=== PATIENT | female | born 1990 | race Caucasian/White ===

== ENCOUNTER 2022-09-20 07:43 | Inpatient (IN) ==
[2022-09-20] MEDS ORDERED: LIDOCAINE 1% LOCAL 20 ML VIAL INFIL PRN (08:20)
[2022-09-20] MEDS ORDERED: OXYTOCIN 30 UNITS/500 ML BAG IV PRN (08:20)
[2022-09-20] MEDS ORDERED: LACTATED RINGER'S 1,000 ML IV PRN (08:20)
--- NOTE | 2022-09-20 08:36 | History & Physical Report ---
Date of Service September 20, 2022 Assessment & Plan (1) Breech presentation: (2) Large for gestational age fetus: (3) Polyhydramnios affecting : Plan PLan attempt at ECV. Risks discussed including failure, pain, rom, abruption, heart rate changes that would necessitate . ON my ultrasound, there does not appear to be a nuchal cord and plenty of fluid. Also discussed risks of --anesthesia, bleeding, transfusion, infection, poor wound healing, damage to surrounding structures with need for further surgery, blood clot leg/lungs, heart attack , stroke, , injury to the baby. Discussed could go with c/s first, but really would like to attempt ecv. Patient also understands that this baby appears lga. We may be successful and still need a c/s because baby does not fit through the pelvis . Fetus category one. Admission and Anticipated Discharge Date Admission Date: September 20, 2022 History of Present Illness Chief Complaint: poly, breech Primary Care Provider: Cherelle Farias MD Patient s a [id number] with iup at 39 0/7 weeks . Patient presents to labor and delivery for probable version. Patient was scheduled for induction for me today for poly. She presented to the office yesterday and had rnst, ultrasound with dvp 11 and now breech presentation. Long discussion about options--attempt version, primary c/s. Patient would like to attempt version. Notes good fm. no lof/vb. rare contraction and Delivery Plans LGA--plan 39wk induction 36 week us AC>98%, efw 97% Obesity (BMI between 35-39 @ beginning of ) *Growth US @ 32 wks *Weekly NSTs @ 36wks Hx HSV - Valtrex at 36 week has had covid vaccine--no booster Polyhydramnios *Weekly NSTs @ Dx *Weekly AFIs @ Dx *If pocket >16 refer to M *Deliver between [id number] - IOL 09/20/22 flu vaccine at work got covid booster 07/06/22 OB Labs: Blood Type O Positive 02/19/22 Antibody Screen NEGATIVE 02/19/22 Hemoglobin 12.0 g/dl (12.0-16.0) 07/05/22 Hematocrit 34.7 % (34.1-44.9) 07/05/22 Mean Corpuscular Volume 86.8 fL (80-100) 02/19/22 Platelet Count 378 K/uL (130-400) 02/19/22 Rubella IgG Antibody Immune (Immune) 02/19/22 Rapid Plasma Reagin Nonreactive (Nonreactive) 02/19/22 Hepatitis B Surface Antigen. NON-REACTIVE (NON-REACTIVE) 02/19/22 Hepatitis C Antibody Neg (Neg) 10/28/19 Hepatitis C Antibody (EIA) NON-REACTIVE (NON-REACTIVE) 02/19/22 HIV (1&2) Ag and Ab Confirmation NON-REACTIVE (NON-REACTIVE) 02/19/22 Glucose 1 Hour 50 gm Load 113 mg/dl (70-130) 07/05/22 Maternal Serum Alpha Fetoprotein 36.3 ng/mL 04/25/22 OB Optional Labs: Chlamydia trachomatis RNA NOT DETECTED (NOT DETECTED) 02/19/22 Neisseria gonorrhoeae RNA NOT DETECTED (NOT DETECTED) 02/19/22 Alpha Fetoprotein Triple Screen SEE NOTE 04/25/22 Labs Reviewed: Hep C - nonreactive Hep B - nonreactive HIV - nonreactive Declines cf/sma--mln low risk panorama neg afp gbs neg Allergies Allergy/AdvReac Type Severity Reaction Status Date / Time No Known Allergies Allergy Verified 09/19/22 09:01 Home Medications Medication Instructions Recorded Confirmed Type sertraline 100 mg tablet 100 mg PO DAILY 03/27/21 09/19/22 History prenat.vits,matthias,iaq-fovp-xsgth 1 tab PO DAILY 02/05/22 09/19/22 History valacyclovir 500 mg tablet 500 mg PO BID #60 tabs 08/21/22 09/19/22 Rx (Valtrex) Patient History Medical History HSV-1 (herpes simplex virus 1) infection No chronic diseases present No pertinent past medical history Surgical History S/P wisdom tooth extraction Family History Father Hypertension Mother Anxiety Denies family history of Ovarian cancer Breast cancer Colorectal cancer Social History Smoking Status: Never smoker Hx Alcohol Use: No Hx Substance Use: No Preferred Language: German Communication Ability: Effective 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 Operator Required: No marital status: marital status details: Terrance Wang (31) [phone] Current Living Situation: Spouse Current Living Situation Comment: lives with spouse, cat-spoouse changing litter current occupational status: employed current occupation: [employer] Other Information That Helps Us Care for You: No Feels Safe at Home: Yes Safety Concerns: Feels Safe At This Time OB History g1--present [employer]OP[employer] INTERN History noncontributory Physical Exam Constitutional: WD/WN, vitals as above Gastrointestinal (Abdomen): soft, gravid, nt US--poly, breech with legs crossed at cervix Psychiatric: A+Ox3, euthymic affect Genitourinary: EFM--140s with mod variability, accels to 160s, no decels toco--tayo Results & Data ([facility]) Vital Signs (Past 12 Hours) Vital Signs Temp Pulse Resp BP 09/20/22 08:22 101 H 133/90 09/20/22 07:55 37.0 C 18 Coding Level of Care Code None Diagnoses Breech presentation O32.1XX0 Large for gestational age fetus Polyhydramnios affecting O40.9XX0
[2022-09-20 08:57] LABS: Hematocrit (blood only) 34.6 % (34.1-44.9); Mean Corpuscular Hemoglobin 30.6 pg (25.0-34.0); Mean Corpuscular Hgb Conc 34.7 g/dL (32.0-36.0); Mean Corpuscular Volume 88.3 fL (80.0-100.0); Mean Platelet Volume 10.2 fL (9.4-12.3); Platelet Count 258 K/uL (130-400); RDW Coefficient of Variation 12.6 % (11.5-14.5); Red Blood Count 3.92 M/uL (3.93-5.22); White Blood Count 8.06 K/ul (4.8-10.8)
[2022-09-20] MEDS ORDERED: MINERAL OIL 30 ML UDC ONE (09:19)
--- NOTE | 2022-09-20 09:45 | Labor Progress Brief Note ---
Date of Service September 20, 2022 Subjective comfortable after attempt at version Assessment & Plan (1) Breech presentation: (2) Failed external cephalic version: Plan Will plan to proceed with primary c/s. Unfortunately the patient ate a granola bar this am. Anesthesia feels most comfortable waiting til 1pm to do procedure. No urgency so ok with this unless situation changes. fht category one. Admission and Anticipated Discharge Date Admission Date: September 20, 2022 Physical Exam Physical Exam: Patient was placed in the supine position , arms over head. Head in the ruq, complete breech. Attempt made to turn baby x 3 with backward roll. No movement of the baby . FHR remained reassuring throughout. fht--140s with mod variability, accels to 170s, no decels noted toco--tayo Results & Data ([facility]) Vital Signs (Past 12 Hours) Vital Signs Temp Pulse Resp BP Pulse Ox 09/20/22 09:37 90 96 09/20/22 09:32 104 H 98 09/20/22 09:27 86 98 09/20/22 09:22 99 H 97 09/20/22 08:50 137 H 82 L 09/20/22 08:22 101 H 133/90 09/20/22 07:55 37.0 C 18 Coding Level of Care Code None Diagnoses Breech presentation O32.1XX0 Failed external cephalic version O32.9XX0
--- NOTE | 2022-09-20 12:07 | Anesthesiology Consultation ---
Date of Service September 20, 2022 Assessment & Plan (1) Encounter for pre-operative examination: Chart Review Chart Review: Acceptable Risk for Surgery and Patient NOT seen in Pre Admission Testing Consults Requested none History Height/Weight Height: 5 ft 4 in Weight: 105.233 kg Allergies Allergy/AdvReac Type Severity Reaction Status Date / Time No Known Allergies Allergy Verified 09/19/22 09:01 Medications Home Medications Medication Instructions Recorded Confirmed Last Taken sertraline 100 mg tablet 100 mg PO DAILY 03/27/21 09/19/22 1 Day Ago ~09/19/22 prenat.vits,matthias,zja-zkiv-izgza 1 tab PO DAILY 02/05/22 09/19/22 1 Day Ago ~09/19/22 valacyclovir 500 mg tablet 500 mg PO BID #60 tabs 08/21/22 09/19/22 1 Day Ago (Valtrex) ~09/19/22 Active Medications Generic Name Dose Route Start Last Admin Trade Name Freq PRN Reason Stop Dose Admin Lactated Ringer's 1,000 mls @ 125 mls/hr 09/20/22 08:20 09/20/22 11:32 Lr IV 09/22/22 08:19 125 mls/hr .Q8H PRN Administration L&D Protocol Protocol Past Medical History Medical History HSV-1 (herpes simplex virus 1) infection No chronic diseases present No pertinent past medical history Exercise / Class Metabolic Activity II 4-5 Yardwork/Stairs/Walk up hill Past Family History Family History Father Hypertension Mother Anxiety Denies family history of Ovarian cancer Breast cancer Colorectal cancer Past Surgical History Surgical History S/P wisdom tooth extraction Past Anesthesia History No Hx of Anesthesia Complications and No Family Hx of Anesthesia Complications Social History Smoking Status: Never smoker Hx Alcohol Use: No Hx Substance Use: No Physical Exam Vital Signs Last Vital Signs Temp 36.9 C 09/20/22 11:29 Pulse 76 09/20/22 11:29 Resp 17 09/20/22 11:29 BP 127/69 09/20/22 11:29 Pulse Ox 96 09/20/22 09:37 Testing Laboratory Results 09/20/22 08:39 Blood Type Cancelled 09/20/22 08:39 Blood Type O Positive 09/20/22 08:39 Antibody Screen Cancelled 09/20/22 08:39 Antibody Screen NEGATIVE 09/20/22 08:39
[2022-09-20] MEDS ORDERED: PHENYLEPHRINE 100MCG/ML 5ML SYR ONE (12:48)
[2022-09-20] MEDS ORDERED: ONDANSETRON INJ 2 MG/ML 2 ML VIAL ONE (12:48)
[2022-09-20] MEDS ORDERED: ePHEDrine sulfate 50 MG/ML AMP ONE (12:48)
[2022-09-20] MEDS ORDERED: OXYTOCIN 10 UNITS/ML 10ML VIAL ONE (12:48)
[2022-09-20] MEDS ORDERED: MoRPHine SULFATE PF 1 MG/ML 10 ML AMP/VIAL ONE (12:49)
[2022-09-20] MEDS ORDERED: fentaNYL citrate 100 MCG/2 ML VIAL ONE (12:49)
[2022-09-20] MEDS ORDERED: PROMETHAZINE HCL 6.25 MG in SODIUM CHLORIDE 0.9% 50 ML IV PRN (13:32)
[2022-09-20] MEDS ORDERED: LACTATED RINGER'S 500 ML IV PRN (13:32)
[2022-09-20] MEDS ORDERED: MoRPHine SULFATE 2 MG/ML CARP IV PRN (13:32)
[2022-09-20] MEDS ORDERED: NALOXONE HCL 1 MG in SODIUM CHLORIDE 0.9% 1000ML 1,000 ML IV PRN (13:32)
[2022-09-20] MEDS ORDERED: diphenhydrAMINE 50 MG/ML VIAL IV PRN (13:32)
[2022-09-20] MEDS ORDERED: MoRPHine SULFATE PF 1 MG/ML 10 ML AMP/VIAL INT SPINAL ONE (13:32)
[2022-09-20] MEDS ORDERED: NALOXONE HCL 0.4 MG/1 ML VIAL/CARP IV PRN (13:32)
[2022-09-20] MEDS ORDERED: KETOROLAC 30 MG/ML VIAL IV PRN (13:32)
[2022-09-20] MEDS ORDERED: ePHEDrine sulfate 50 MG/ML AMP IV PRN (13:32)
[2022-09-20] MEDS ORDERED: ONDANSETRON INJ 2 MG/ML 2 ML VIAL IV PRN (13:32)
[2022-09-20] MEDS ORDERED: NALBUPHINE HCL INJ 10 MG/ML AMP IV PRN (13:32)
[2022-09-20] MEDS ORDERED: NALOXONE HCL 0.08 MG in SYRINGE 1.8 ML IV PRN (13:32)
[2022-09-20] MEDS ORDERED: NO NARCOTICS OR SEDATIVES SCH (13:45)
[2022-09-20] MEDS ORDERED: DC INTRASPINAL MORPHINE SCH (13:45)
[2022-09-20] MEDS ORDERED: SODIUM CHLORIDE 0.9% 1000ML 1,000 ML IV SCH (13:45)
[2022-09-20] MEDS ORDERED: SENNA 8.6 MG TAB PO PRN (14:04)
[2022-09-20] MEDS ORDERED: LACTATED RINGER'S 1,000 ML IV SCH (14:04)
[2022-09-20] MEDS ORDERED: BENZOCAINE 20% AER SPR 82.5 GM CAN EXT PRN (14:04)
[2022-09-20] MEDS ORDERED: MAGNESIUM HYDROXIDE SUSP 30 ML UDC PO PRN (14:04)
[2022-09-20] MEDS ORDERED: HYDROCORTISONE ACETATE 25 MG SUPP PR PRN (14:04)
[2022-09-20] MEDS ORDERED: DIPHTHERIA/TETANUS/PERTUSSIS 0.5 ML SYR/VIAL IM ONE (14:04)
--- NOTE | 2022-09-20 14:05 | Anesthesiology Progress Note ---
Date of Service September 20, 2022 Anesthesia Post Procedure Vital Signs Vital Signs: Temp Pulse Resp BP Pulse Ox 09/20/22 14:01 90 97 09/20/22 14:02 82 138/75 09/20/22 11:29 36.9 C 76 17 127/69 09/20/22 09:37 90 96 09/20/22 09:32 104 H 98 09/20/22 09:27 86 98 09/20/22 09:22 99 H 97 09/20/22 08:50 137 H 82 L 09/20/22 08:22 101 H 133/90 09/20/22 07:55 37.0 C 18 Transfer of Care Handoff Completed per policy Notes Mental Status: alert / awake / arousable Patient Amnestic to Procedure: No Nausea / Vomiting: adequately controlled Pain: adequately controlled Airway Patency, RR, SpO2: stable & adequate BP & HR: stable & adequate Hydration State: stable & adequate Neuraxial Anesthesia: was administered and sensory block is resolving Anesthetic Complications: no major complications apparent and Pt Satisfied with anesthetic care
--- NOTE | 2022-09-20 14:08 | Operative Report ---
PG Post Operative Report Pre & Post Diagnosis Operation Date: 09/20/22 12:45 Pre-Op Diagnosis: at 39 weeks Breech presentation and Failed external cephalic version Polyhydramnios Post-Op Diagnosis: at 39 weeks Breech presentation and Failed external cephalic version Polyhydramnios I identified the patient and participated in the time-out.: Yes Procedure Operation Date: 09/20/22 12:45 Actual Procedures p Primary low transverse Section in LD live female child delivered at 1329. - Maame Bojorquez MD, FACOG Surgeon Maame Bojorquez MD, FACOG Transit Coach Operator Dr. Ajay Orozco, PGY 1 Estimated Blood Loss 500 Findings Consistent with Post-Op Diagnosis viable female infant in complete breech presentation. apgars 7/8. nl utx/ovs bilaterally. Small right peritubal cyst drained. Fluids ivf 1500cc uop--50 cc clear Specimens none Drains clement Anesthesia Type Spinal Complications none Disposition Accompanied Patient To Recovery: Yes Disposition: Recovery Room Indications iup at 39 weeks, complete breech presentation, lga, failed version Description of Procedure The patient was taken to the operating room where she was identified verbally and by bracelet. She was seated on the operating table where a spinal anesthetic was placed by anesthesia. She was then placed in the supine position with a leftward tilt. A Clement catheter was placed sterilely. the patient was prepped and draped in a normal standard fashion. the anesthetic was tested and found to be adequate. A time-out was held, identifying correct patient, procedure, positioning and preoperative antibiotics. There were no concerns. A Pfannenstiel skin incision was made with a knife and taken down to the underlying layer of fascia with the knife and Bovie electrocautery. Bleeding was attended to with the Bovie. The fascia was incised in the midline with the knife and taken out laterally with scissors. The superior edge of the fascial incision was grasped, elevated and the underlying layer of rectus muscle was taken off bluntly and with scissors. In a similar fashion, the inferior edge of the fascial incision was grasped, elevated and the underlying layer of rectus muscle was taken off bluntly and with scissors. The muscles were bluntly in the midline. The peritoneum was entered bluntly. The incision was then stretched. The bladder blade was placed. The vesicouterine peritoneum was identified, entered with scissors and taken out laterally with scissors. The bladder flap was created digitally A hysterotomy incision was scored with a knife and the incision was stretched superiorly and inferiorly with the link fabric machine operator's fingers. The operators hand was placed into the incision and the feet were delivered atraumatically. The body delivered with traction and fundal pressure. The arms were reduced across the chest and the head was delivered with fundal pressure. No nuchal cord. The nose and mouth were bulb suctioned. The baby was vigorous. The cord was clamped and cut and the was then handed off to the awaiting mathematical scientist for drying and attention. Cord blood and segment were obtained. The placenta was Manually extracted. The uterus was exteriorized and cleared of all clot and debris with moistened laparotomy sponges. The hysterotomy incision was repaired in two layers, the first in a running locked layer, the second in an imbricating layer. Hemostasis was noted to be good. Posterior cul-de-sac was irrigated and cleared of all clot and debris. The hysterotomy incision was again inspected, one figure of eight suture of 0 Vicryl placed and found to be hemostatic. A small peritubal cyst on the right tube was drained of clear fluid. the uterus was reinteriorized. Hysterotomy incision was again inspected and found to be hemostatic. Rectus muscles were reapproximated with several interrupted stitches of 0 Vicryl. The fascia was then reapproximated with 0 Vicryl starting at the edges and meeting in the midline. The subcuticular tissues were copiously irrigated and bleeding was attended to with cautery. The skin was then closed with 4-0 Vicryl in a subcuticular fashion. All sponge, lap and needle counts correct x 2. The patient tolerated the proce dure well and was taken to recovery in stable condition. Mother and baby doing well at the end of the delivery. I attest to the content of the Intraoperative Record and any orders documented therein. Any exceptions are noted below. OB Procedure Charges 09001
[2022-09-20] MEDS: OXYTOCIN 20 UNITS in LACTATED RINGER'S 1,000 ML IV SCH (19:33)
[2022-09-20] MEDS: DOCUSATE SODIUM 100 MG CAP PO SCH (20:45)
[2022-09-20] MEDS: SIMETHICONE 80 MG CHEW PO SCH (20:45)
[2022-09-21] MEDS: OXYTOCIN 20 UNITS in LACTATED RINGER'S 1,000 ML IV SCH (04:09)
[2022-09-21] MEDS ORDERED: CITRIC ACID/SODIUM CITRATE 15 ML UDC PO SCH (06:00)
--- NOTE | 2022-09-21 06:48 | Obstetrical Progress Note ---
Date of Service <Ajay Orozco DO - Last Filed: 09/21/22 07:34> September 21, 2022 Assessment & Plan <Ajay Orozco DO - Last Filed: 09/21/22 07:34> (1) S/P section: - Feels well today. Will work on progressing ambulation, eating, and take Clement cath out today. - Pain well controlled with ibuprofen 600mg Q4H PRN and Percocet. - Routine care -- OOB, ambulation, diet progression as tolerated - After discharge will have 6 week follow-up with Dr. Bojorquez. Day #:: 1 <Maame Bojorquez MD, FACOG - Last Filed: 09/21/22 07:53> (1) S/P section: Subjective <Ajay Orozco DO - Last Filed: 09/21/22 07:34> Ambulation: limited ambulation Voiding: clement catheter in place Passing Gas:: No Diet Tolerance:: clear liquids Lochia:: Small Feeding Type:: breast feeding Current Pain Level(1-10): 3 Patient states that she had some nausea overnight but has improved by this morning. Review of Systems Denies fever, chills, sweats Denies shortness of breath, difficulty breathing, chest pain, palpitations, chest pressure. Denies breast pain. Denies dysuria. Denies headache or changes in vision. Physical Exam <Ajay Orozco DO - Last Filed: 09/21/22 07:34> General: Alert, oriented. No acute distress. Cardiac: Regular rate and rhythm, no murmurs/rubs/gallops. Respiratory: Clear to auscultation bilaterally a/p, no wheezes/rales/rhonchi. No increased work of breathing. Symmetrical chest rise. No respiratory distress. Abdomen: Soft, nontender, nondistended. Bowel sounds present. Uterus: Uterine fundus firm, palpable 1 cm below umbilicus. Lower Extremities: No lower extremity edema or swelling. No deep calf pain. Mani's negative bilaterally. Results & Data ([facility]) <Ajay Orozco DO - Last Filed: 09/21/22 07:34> Vital Signs (Past 12 Hours) Vital Signs Temp Pulse Resp BP BP Pulse Ox O2 Del Method 09/21/22 06:18 18 95 09/21/22 04:30 18 97 09/21/22 05:47 18 94 09/21/22 03:45 18 98 09/21/22 03:28 36.5 C 67 18 123/74 97 Room Air 09/21/22 02:38 18 95 09/21/22 01:33 18 94 09/21/22 00:15 18 97 09/20/22 23:13 17 97 09/20/22 23:13 36.6 C 73 17 129/83 97 Room Air 09/20/22 22:50 18 97 09/20/22 21:37 18 98 09/20/22 20:25 18 98 09/20/22 20:25 Room Air 09/20/22 20:25 36.8 C 85 18 132/84 98 Room Air <Maame Bojorquez MD, FACOG - Last Filed: 09/21/22 07:53> Co-Signing Physician Notes Resident Physician Supervision Note: I interviewed and examined the patient. Discussed with Dr. Orozco and agree with findings and plan as documented in the note. Any exceptions or clarifications are listed here: Doing well. Early pod 1. Routine care. Documented By: Maame Bojorquez MD, FACOG Resident Activity Tracking <Ajay Orozco DO - Last Filed: 09/21/22 07:34> Resident Involvement: Resident Care Provided Care Provided: OB Delivery
[2022-09-21] MEDS ORDERED: ONDANSETRON INJ 2 MG/ML 2 ML VIAL IV PRN (07:32)
[2022-09-21] MEDS ORDERED: diphenhydrAMINE 50 MG/ML VIAL IV PRN (07:32)
[2022-09-21] MEDS ORDERED: KETOROLAC 30 MG/ML VIAL IV PRN (07:32)
[2022-09-21] MEDS ORDERED: diphenhydrAMINE Capsule 25 MG CAP PO PRN (07:32)
[2022-09-21] MEDS ORDERED: PROMETHAZINE HCL 25 MG in SODIUM CHLORIDE 0.9% 50 ML IV PRN (07:32)
[2022-09-21 08:00] LABS: Basophils # (auto) 0.02 K/uL (0-0.2); Basophils % (auto) 0.3 %; Eosinophils # (auto) 0.11 K/uL (0-0.50); Eosinophils % (auto) 1.5 %; Hematocrit (blood only) 33.8 % (34.1-44.9); Hemoglobin 11.8 g/dl (12.0-16.0); Immature Granulocytes # (auto) 0.04 K/uL (0.00-0.02); Immature Granulocytes % (auto) 0.5 %; Lymphocytes # (auto) 1.48 K/uL (1.2-3.4); Lymphocytes % (auto) 19.7 %; Mean Corpuscular Hemoglobin 30.8 pg (25.0-34.0); Mean Corpuscular Hgb Conc 34.9 g/dL (32.0-36.0); Mean Corpuscular Volume 88.3 fL (80.0-100.0); Mean Platelet Volume 10.1 fL (9.4-12.3); Monocytes # (auto) 0.37 K/uL (0.24-0.82); Monocytes % (auto) 4.9 %; Neutrophils # (auto) 5.49 K/uL (1.4-6.5); Neutrophils % (auto) 73.1 %; Platelet Count 190 K/uL (130-400); RDW Coefficient of Variation 12.7 % (11.5-14.5); RDW Standard Deviation 40.5 fL (36.4-46.3); Red Blood Count 3.83 M/uL (3.93-5.22); White Blood Count 7.51 K/ul (4.8-10.8)
[2022-09-21] MEDS: DOCUSATE SODIUM 100 MG CAP PO SCH ×2 (08:02→20:11)
[2022-09-21] MEDS: SERTRALINE HCL 100 MG TABLET PO SCH (08:02)
[2022-09-21] MEDS: SIMETHICONE 80 MG CHEW PO SCH ×5 (08:02→20:11)
[2022-09-21] MEDS: FERROUS SULFATE 325 MG TAB PO SCH (08:02)
[2022-09-21] MEDS: PRENATAL VITAMIN 1 TAB PO SCH (08:02)
[2022-09-21] MEDS: oxyCODONE/ACETAMINOPHEN 5mg/325mg TAB PO PRN ×3 (09:06→17:51)
[2022-09-21] MEDS: IBUPROFEN 600 MG TAB PO PRN ×2 (14:00→17:51)
[2022-09-21] MEDS ORDERED: bisacodyL 5 MG TABEC PO SCH (20:00)
[2022-09-22] MEDS: IBUPROFEN 600 MG TAB PO PRN ×5 (00:19→21:38)
[2022-09-22] MEDS: oxyCODONE/ACETAMINOPHEN 5mg/325mg TAB PO PRN ×3 (00:20→12:56)
--- NOTE | 2022-09-22 06:34 | Obstetrical Progress Note ---
Date of Service <Ajay Orozco DO - Last Filed: 09/22/22 07:04> September 22, 2022 Assessment & Plan <Ajay Orozco DO - Last Filed: 09/22/22 07:04> (1) S/P section: - Feels well today. Eating well, voiding well, ambulating well. - Pain well controlled with ibuprofen 600mg Q4H PRN and Percocet. - Routine care -- OOB, ambulation, diet progression as tolerated - After discharge will have 6 week follow-up with Dr. Bojorquez. Day #:: 2 <Tasia Schaefer MD, FACOG - Last Filed: 09/22/22 10:09> (1) S/P section: Subjective <Ajay Orozco DO - Last Filed: 09/22/22 07:04> Ambulation: ambulating normally Voiding: no voiding problems Passing Gas:: Yes Diet Tolerance:: regular diet Lochia:: Small Feeding Type:: breast feeding Current Pain Level(1-10): 0 Review of Systems Denies fever, chills, sweats Denies shortness of breath, difficulty breathing, chest pain, palpitations, chest pressure. Denies breast pain. Denies dysuria. Denies headache or changes in vision. Physical Exam <Ajay Orozco DO - Last Filed: 09/22/22 07:04> General: Alert, oriented. No acute distress. Cardiac: Regular rate and rhythm, no murmurs/rubs/gallops. Respiratory: Clear to auscultation bilaterally a/p, no wheezes/rales/rhonchi. No increased work of breathing. Symmetrical chest rise. No respiratory distress. Abdomen: Soft, nontender, nondistended. Bowel sounds present. Uterus: Uterine fundus firm, palpable 1 cm below umbilicus. Lower Extremities: No lower extremity edema or swelling. No deep calf pain. Mani's negative bilaterally. Results & Data ([facility]) <Ajay Orozco DO - Last Filed: 09/22/22 07:04> Vital Signs (Past 12 Hours) Vital Signs Temp Pulse Resp BP BP Pulse Ox O2 Del Method 09/22/22 00:15 36.5 C 70 18 142/93 H 98 Room Air 09/21/22 20:00 36.8 C 70 16 131/83 96 Room Air <Tasia Schaefer MD, FACOG - Last Filed: 09/22/22 10:09> Co-Signing Physician Notes Resident Physician Supervision Note: I interviewed and examined the patient. Discussed with Dr. Orozco and agree with findings and plan as documented in the note. Any exceptions or clarifications are listed here: [None] Documented By: Tasia Schaefer MD, FACOG Resident Activity Tracking <Ajay Orozco, - Last Filed: 09/22/22 07:04> Resident Involvement: Resident Care Provided Care Provided: OB Delivery
[2022-09-22 06:46] LABS: Hematocrit (blood only) 34.4 % (34.1-44.9); Hemoglobin 11.9 g/dl (12.0-16.0)
[2022-09-22] MEDS: DOCUSATE SODIUM 100 MG CAP PO SCH ×2 (08:50→21:38)
[2022-09-22] MEDS: SIMETHICONE 80 MG CHEW PO SCH ×4 (08:50→21:37)
[2022-09-22] MEDS: FERROUS SULFATE 325 MG TAB PO SCH (08:51)
[2022-09-22] MEDS: PRENATAL VITAMIN 1 TAB PO SCH (08:51)
[2022-09-22] MEDS: SERTRALINE HCL 100 MG TABLET PO SCH (08:52)
[2022-09-22] MEDS ORDERED: bisacodyL 10 MG SUPP PR PRN (13:53)
[2022-09-22 19:49] LABS: Hematocrit (blood only) 34.6 % (34.1-44.9); Hemoglobin 11.7 g/dl (12.0-16.0); Mean Corpuscular Hemoglobin 30.4 pg (25.0-34.0); Mean Corpuscular Hgb Conc 33.8 g/dL (32.0-36.0); Mean Corpuscular Volume 89.9 fL (80.0-100.0); Platelet Count 241 K/uL (130-400); RDW Coefficient of Variation 12.7 % (11.5-14.5); Red Blood Count 3.85 M/uL (3.93-5.22); White Blood Count 8.58 K/ul (4.8-10.8)
[2022-09-22 20:19] LABS: Albumin Globulin Ratio 1.2 (0.9-2); Albumin Level 2.9 gm/dl (3.4-5.0); BUN Creatinine Ratio 22.4 (10-20); Bilirubin,Total 0.2 mg/dl (0.2-1.0); Calcium 7.7 mg/dl (8.5-10.1); Creatinine Clr Calc Pharmacy 166.2 ml/min; Est GFR (African American) 142.4 ml/min; Est GFR (Non-African American) 122.8 ml/min; Globulin 2.4 gm/dl (2.5-4.0); Potassium 3.5 mmol/L (3.5-5.1); Total Protein 5.3 gm/dl (6.0-8.3)
--- NOTE | 2022-09-22 21:43 | Communication Note ---
Date of Service: September 22, 2022 Notified by nursing that BPs have been slowly increasing, none severe. Pt denies ROGERS, vision change, CP, SOB, RUQ/epigastric pain. Had a little bit of pain by shoulder today that thought was MSK related due to how she was holding baby, not always there and not illicited currently. Labs were obtained and wnl. Discussed likely ppgHTN dx. Will see how BPs are, if become persistently in 150s will start anti-HTN, but if remain in 140s I think ok to monitor. Pt and verbalized understanding, answered questions to apparent satisfaction
[2022-09-23] MEDS: oxyCODONE/ACETAMINOPHEN 5mg/325mg TAB PO PRN ×2 (03:35→19:47)
[2022-09-23] MEDS: IBUPROFEN 600 MG TAB PO PRN ×4 (03:35→17:17)
[2022-09-23] MEDS: LABETALOL HCL 200 MG TAB PO SCH ×2 (05:11→17:18)
--- NOTE | 2022-09-23 07:15 | Obstetrical Progress Note ---
Date of Service September 23, 2022 Assessment & Plan (1) S/P section: 31 yo PP3 from [facility] for breech. -Meeting all pp milestones -O+/rubella immune/ -f/u 6 weeks for appt (2) Gestational hypertension: -meets criteria for ppGHTN, pet labs wnl so at this point not meeting pre- eclampsia criteria and is asymptomatic. BPs more persistently 150s overnight so started labetalol early this AM. Will see how BPs go, may consider later d/c today otherwise stay till tomorrow for BP management. Will need 1 wk bp check Subjective Ambulation: ambulating normally Voiding: no voiding problems Passing Gas:: Yes Diet Tolerance:: regular diet Lochia:: Small Feeding Type:: breast feeding Pain well managed with medication Review of Systems Denies fevers, chills, n/v, ROGERS, CP, SOB, RUQ/epigastric pain Physical Exam Constitutional WD/WN, vitals as above no acute distress Respiratory normal respiratory effort, lungs clear to auscultation Cardiovascular RRR, no murmur, no edema Gastrointestinal (Abdomen) Percussion/Palpation: abdomen soft; abdomen nontender fundus firm at umbilicus and NT, incision c/d/i Musculoskeletal BLE symmetric, nonerythematous, nontender Results & Data ([facility]) Vital Signs (Past 12 Hours) Vital Signs Temp Pulse Resp BP Pulse Ox O2 Del Method 09/23/22 06:22 148/95 H 09/23/22 03:55 146/94 H 09/23/22 05:10 76 144/89 H 09/23/22 04:15 152/96 H 09/23/22 03:39 68 153/100 H 09/22/22 23:47 98.6 F 64 18 144/91 H 97 Room Air 09/22/22 20:15 Room Air 09/22/22 20:15 98.1 F 91 H 20 142/99 H 96 Room Air
[2022-09-23] MEDS: PRENATAL VITAMIN 1 TAB PO SCH (08:46)
[2022-09-23] MEDS: FERROUS SULFATE 325 MG TAB PO SCH (08:46)
[2022-09-23] MEDS: DOCUSATE SODIUM 100 MG CAP PO SCH (08:46)
[2022-09-23] MEDS: SIMETHICONE 80 MG CHEW PO SCH ×3 (08:46→17:17)
[2022-09-23] MEDS: SERTRALINE HCL 100 MG TABLET PO SCH (13:02)
[2022-09-23] MEDS ORDERED: LABETALOL HCL 200 MG TAB PO SCH ×2 (19:30→21:00)
--- NOTE | 2022-09-23 19:34 | Communication Note ---
Date of Service: September 23, 2022 Re-evaluated pt at bedside. Discussed with pt and her her BPs have been appropriate throughotu the day on labetalol. Had elevated 150s right as labetalol dose was due and responded appropriately to the labetalol back to 140s/90s. Denies s/s of PET. I think ok to d/c as most bps are 140s/90s. Reviewed s/s of PET to call for as well as hypotension precautions, pt verbalized understanding. Home pack of labetalol ordered due to time and rx sent to [facility] per pt request, task sent for BP check this week. Stable for dc home
--- NOTE | 2022-09-24 13:57 | Discharge Summary ---
Date of Service September 24, 2022 Admission HPI Per Admitting Provider Patient s a 31yowf with iup at 39 0/7 weeks . Patient presents to labor and delivery for probable version. Patient was scheduled for induction for me today for poly. She presented to the office yesterday and had rnst, ultrasound with dvp 11 and now breech presentation. Long discussion about options--attempt version, primary c/s. Patient would like to attempt version. Notes good fm. no lof/vb. rare contraction and Delivery Plans LGA--plan 39wk induction 36 week us AC>98%, efw 97% Obesity (BMI between 35-39 @ beginning of ) *Growth US @ 32 wks *Weekly NSTs @ 36wks Hx HSV - Valtrex at 36 week has had covid vaccine--no booster Polyhydramnios *Weekly NSTs @ Dx *Weekly AFIs @ Dx *If pocket >16 refer to MFM *Deliver between [id number] - IOL 09/20/22 flu vaccine at work got covid booster 07/06/22 OB Labs: Blood Type O Positive 02/19/22 Antibody Screen NEGATIVE 02/19/22 Hemoglobin 12.0 g/dl (12.0-16.0) 07/05/22 Hematocrit 34.7 % (34.1-44.9) 07/05/22 Mean Corpuscular Volume 86.8 fL (80-100) 02/19/22 Platelet Count 378 K/uL (130-400) 02/19/22 Rubella IgG Antibody Immune (Immune) 02/19/22 Rapid Plasma Reagin Nonreactive (Nonreactive) 02/19/22 Hepatitis B Surface Antigen. NON-REACTIVE (NON-REACTIVE) 02/19/22 Hepatitis C Antibody Neg (Neg) 10/28/19 Hepatitis C Antibody (EIA) NON-REACTIVE (NON-REACTIVE) 02/19/22 HIV (1&2) Ag and Ab Confirmation NON-REACTIVE (NON-REACTIVE) 02/19/22 Glucose 1 Hour 50 gm Load 113 mg/dl (70-130) 07/05/22 Maternal Serum Alpha Fetoprotein 36.3 ng/mL 04/25/22 OB Optional Labs: Chlamydia trachomatis RNA NOT DETECTED (NOT DETECTED) 02/19/22 Neisseria gonorrhoeae RNA NOT DETECTED (NOT DETECTED) 02/19/22 Alpha Fetoprotein Triple Screen SEE NOTE 04/25/22 Labs Reviewed: Hep C - nonreactive Hep B - nonreactive HIV - nonreactive Declines cf/sma--mln low risk panorama neg afp gbs neg Discharge Data Consultations 09/20/22 09:31 Consult Anesthesiology Stat Procedures Performed Operation Date: 09/20/22 12:45 Actual Procedures p Section in LD live female child delivered at 1329. - Maame Bojorquez MD, [facility] Course (1) Gestational hypertension: (2) S/P section: (3) Failed external cephalic version: Plan Patient presented to labor and delivery and had a failed version. She then unde rwent a primary low transverse without incident. EBL--500cc. Her PP course complicated by a diagnosis of pp GHTN and she was d/c home on labetolol with close f/u in the office. She had normal labs. She tolerated a regular diet, ambulated without difficulty, voided after the removal of her clement catheter, pain controlled on oral pain meds. Discharge h/h 11.7/34.6. She will f/u in the office this week for a blood pressure check. Coding Level of Care Code None Diagnoses Gestational hypertension O13.9 S/P section Z98.891 Failed external cephalic version O32.9XX0
== END 2022-09-23 20:42 | disposition home or self-care (01) | DRG 788 ==
LOC: 4S1 07:43 → 4E2 16:26

== ENCOUNTER 2022-09-25 06:13 | Observation (INO) ==
[2022-09-25 07:01] LABS: Basophils # (auto) 0.03 K/uL (0-0.2); Basophils % (auto) 0.3 %; Eosinophils # (auto) 0.16 K/uL (0-0.50); Eosinophils % (auto) 1.9 %; Hematocrit (blood only) 37.8 % (34.1-44.9); Hemoglobin 12.9 g/dl (12.0-16.0); Immature Granulocytes # (auto) 0.04 K/uL (0.00-0.02); Immature Granulocytes % (auto) 0.5 %; Lymphocytes # (auto) 2.02 K/uL (1.2-3.4); Lymphocytes % (auto) 23.5 %; Mean Corpuscular Hemoglobin 30.1 pg (25.0-34.0); Mean Corpuscular Hgb Conc 34.1 g/dL (32.0-36.0); Mean Corpuscular Volume 88.1 fL (80.0-100.0); Mean Platelet Volume 9.7 fL (9.4-12.3); Monocytes # (auto) 0.39 K/uL (0.24-0.82); Monocytes % (auto) 4.5 %; Neutrophils # (auto) 5.97 K/uL (1.4-6.5); Neutrophils % (auto) 69.3 %; Platelet Count 298 K/uL (130-400); RDW Coefficient of Variation 12.9 % (11.5-14.5); Red Blood Count 4.29 M/uL (3.93-5.22); White Blood Count 8.61 K/ul (4.8-10.8)
[2022-09-25 07:20] LABS: Albumin Globulin Ratio 1.1 (0.9-2); Albumin Level 3.1 gm/dl (3.4-5.0); BUN Creatinine Ratio 16.9 (10-20); Bilirubin,Total 0.3 mg/dl (0.2-1.0); Calcium 8.7 mg/dl (8.5-10.1); Creatinine Clr Calc Pharmacy 158.6 ml/min; Est GFR (African American) 141.6 ml/min; Est GFR (Non-African American) 122.1 ml/min; Globulin 2.9 gm/dl (2.5-4.0); Potassium 3.8 mmol/L (3.5-5.1); Troponin I High Sensitivity 33.9 pg/ml (0-14)
[2022-09-25 07:32] LABS: INR 0.9 (0.9-1.1); Partial Thromboplastin Ratio 0.9; Partial Thromboplastin Time 24.5 Seconds (21.0-31.0); Prothrombin Time 9.9 Seconds (9.0-12.0)
--- NOTE | 2022-09-25 07:36 | Emergency Department Note ---
History of Present Illness General Chief complaint: Chest Pain Stated complaint: CHEST PAIN Time Seen by Provider: 09/25/22 07:09 History of Present Illness Maximum Pain Intensity: 4 This is a 31-year-old female that presents to the emergency department via private vehicle with complaints of "chest pain". The patient notes that she recently underwent this past . She has been taking labetalol secondary to a diagnosis of hypertension recently she notes in the setting. She states that she was doing well however around 2 AM today developed central chest tightness. She points to the sternal region as the location of discomfort. The patient denies any change with breathing. The patient denies any history of IA or PE. Patient denies any cough, fevers, chills, nausea or vomiting. She rates her current pain as a 4/10. She tried ibuprofen with minim al relief. She tried Tums with minimal relief. Home Medications Medication Instructions Recorded Confirmed Type sertraline 100 mg tablet 100 mg PO DAILY 03/27/21 09/19/22 History prenat.vits,matthias,[id number] 1 tab PO DAILY 02/05/22 09/19/22 History ibuprofen 600 mg tablet 600 mg PO Q6H PRN pain #60 tabs 09/22/22 Rx oxycodone-acetaminophen 5 mg-325 1 tab PO Q6H PRN pain #14 tabs 09/22/22 Rx mg tablet labetalol 200 mg tablet 200 mg PO Q12 30 days #60 tabs 09/23/22 Rx Allergies Allergy/AdvReac Type Severity Reaction Status Date / Time No Known Allergies Allergy Verified 09/20/22 14:46 Past Med/Surg History Medical History HSV-1 (herpes simplex virus 1) infection No chronic diseases present No pertinent past medical history Surgical History S/P wisdom tooth extraction Family History Father Hypertension Mother Anxiety Denies family history of Ovarian cancer Breast cancer Colorectal cancer Social History Smoking Status: Never smoker Hx Alcohol Use: No Hx Substance Use: No Preferred Language: Indonesian Communication Ability: Effective Account Support Associate Required: No Beliefs That Will Affect Care: None marital status: marital status details: Terrance Wang (31) [phone] Current Living Situation: Spouse Current Living Situation Comment: lives with spouse, cat-spoouse changing l itter current occupational status: employed 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[place], [place]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 Safe at Home: Yes Review of Systems A total of 10 systems reviewed and were otherwise negative Physical Exam Vital Signs Vital Signs - 24 hr 09/25/22 06:16 09/25/22 06:46 09/25/22 06:13 Temperature 36.8 C Temperature Source Temporal Artery Scan Pulse Rate 70 Pulse Rate [Apical] 65 Pulse Rhythm [Apical] Regular Pulse Strength [Apical] Normal Respiratory Rate 20 18 Respiratory Effort / Characteristics Non-Labored Non-Labored Respiratory Depth Normal Normal Respiratory Pattern Regular Blood Pressure 151/100 H Blood Pressure [Left Arm] 152/101 H Blood Pressure Mean 117 Blood Pressure Mean [Left Arm] 118 Blood Pressure Position [Left Arm] Lying Pulse Oximetry 99 95 95 Oxygen Delivery Method Room Air Room Air Room Air Sepsis Recent Fever Within 48 Hours No Sepsis New/Unexplained Change in Mental Status N/A Sepsis Action Taken by Nursing No Action Required 09/25/22 07:18 09/25/22 08:15 Temperature Temperature Source Pulse Rate Pulse Rate [Apical] 64 61 Pulse Rhythm [Apical] Regular Regular Pulse Strength [Apical] Respiratory Rate 18 18 Respiratory Effort / Characteristics Non-Labored Non-Labored Respiratory Depth Normal Normal Respiratory Pattern Regular Regular Blood Pressure Blood Pressure [Left Arm] 146/103 H 175/106 H Blood Pressure Mean Blood Pressure Mean [Left Arm] 117 129 Blood Pressure Position [Left Arm] Lying Lying Pulse Oximetry 97 98 Oxygen Delivery Method Room Air Room Air Sepsis Recent Fever Within 48 Hours Sepsis New/Unexplained Change in Mental Status Sepsis Action Taken by Nursing VITAL SIGNS - Vital signs and nursing notes were reviewed. Stable and afebrile. GENERAL -31-year-old female appearing her stated age who is in no acute distress. Communicates well with provider and answers questions appropriately. SKIN - Without rashes. No meningeal or petechial rash. HEAD - NC/AT. EYES - Sclera anicteric. MOUTH/OROPHARYNX - Without perioral cyanosis. NECK - Neck with FROM. No nuchal rigidity. LUNGS - Chest wall symmetric without accessory muscle use, intercostals retracti ons, or central cyanosis. Normal vesicular breath sounds CTA B/L. No wheezes, rales, or rhonchi appreciated. CARDIAC - RRR with S1/S2. No murmur, rubs, or gallops appreciated. ABDOMEN - Abdominal contour normal without pulsations or visible masses. BS normoactive all four quadrants. No tenderness, palpable masses, hepatosplenomegaly, or ascites noted. EXTREMITIES - No clubbing or peripheral cyanosis. +5/5 strength noted in UE/LE bilaterally. NEUROLOGIC - Cranial nerves II through XII grossly intact. PSYCH - A&Ox3 and cooperates fully with examiner. Pt is very pleasant and interacts well with examiner. Course Administered Medications Acetaminophen (Acetaminophen 325 Mg Tab) 650 mg PO Q4H PRN PRN Reason: Pain (1,2,3) Or Fever Stop: 10/25/22 14:02 Last Admin: 09/25/22 14:29 Dose: 650 mg Documented By: [id number] Discontinued Medications Enoxaparin Sodium (Enoxaparin 100 Mg/1ml Syr) 100 mg SQ ONE STA Stop: 09/25/22 09:58 Last Admin: 09/25/22 10:32 Dose: 100 mg Documented By: SR Influenza Virus Vaccine Quadrival (Fluarix Quadrivalent 0.5 Ml Syr) 0.5 ml IM .ONCE ONE Stop: 09/25/22 14:29 Last Admin: 09/25/22 15:20 Dose: Not Given Documented By: [id number] Ioversol (Optiray 320 500ml) 120 ml IV ONCE ONE Stop: 09/25/22 07:49 Last Admin: 09/25/22 07:48 Dose: 120 ml Documented By: RICHARD Labetalol HCl (Labetalol Hcl 100 Mg Tab) 200 mg PO NOW STA Stop: 09/25/22 10:34 Last Admin: 09/25/22 12:13 Dose: 200 mg Documented By: [id number] Medical Decision Making Laboratory Data Result diagrams: 09/25/22 06:32 09/25/22 06:32 Lab Results 09/25/22 09/25/22 09/25/22 Range/Units 06:32 06:32 06:32 WBC 8.61 (4.8-10.8) K/ul RBC 4.29 (3.93-5.22) M/uL Hgb 12.9 (12.0-16.0) g/dl Hct 37.8 (34.1-44.9) % MCV 88.1 (80.0-100.0) fL MCH 30.1 (25.0-34.0) pg MCHC 34.1 (32.0-36.0) g/dL RDW Std Deviation 41.0 (36.4-46.3) fL RDW Coeff of Kath 12.9 (11.5-14.5) % Plt Count 298 (130-400) K/uL MPV 9.7 (9.4-12.3) fL Immature Gran % (Auto) 0.5 % Neut % (Auto) 69.3 % Lymph % (Auto) 23.5 % Dougherty % (Auto) 4.5 % Eos % (Auto) 1.9 % Baso % (Auto) 0.3 % Neut # (Auto) 5.97 (1.4-6.5) K/uL Lymph # (Auto) 2.02 (1.2-3.4) K/uL Dougherty # (Auto) 0.39 (0.24-0.82) K/uL Eos # (Auto) 0.16 (0-0.50) K/uL Baso # (Auto) 0.03 (0-0.2) K/uL Immature Gran # (Auto) 0.04 H (0.00-0.02) K/uL PT 9.9 (9.0-12.0) Seconds INR 0.9 (0.9-1.1) APTT 24.5 (21.0-31.0) Seconds PTT Ratio 0.9 Sodium 138 (136-145) mmol/L Potassium 3.8 (3.5-5.1) mmol/L Chloride 107 (98-107) mmol/L Carbon Dioxide 24 (21-32) mmol/L Anion Gap 7 (3-11) BUN 10 (6-23) mg/dl Creatinine 0.59 L (0.6-1.2) mg/dl Est Cr Clr Drug Dosing 158.6 ml/min Est GFR ( Amer) 141.6 ml/min Est GFR (Non-Af Amer) 122.1 ml/min BUN/Creatinine Ratio 16.9 (10-20) Glucose 88 (70-99(Fasting)) mg/dl Calcium 8.7 (8.5-10.1) mg/dl Total Bilirubin 0.3 (0.2-1.0) mg/dl AST 29 (13-39) U/L ALT 29 (7-52) U/L Alkaline Phosphatase 113 H (34-104) U/L Troponin I High Sens 33.9 H (0-14) pg/ml Total Protein 6.0 (6.0-8.3) gm/dl Albumin 3.1 L (3.4-5.0) gm/dl Globulin 2.9 (2.5-4.0) gm/dl Albumin/Globulin Ratio 1.1 (0.9-2) SARS-CoV-2, RNA, NAAT (NEGATIVE) 09/25/22 Range/Units 08:11 WBC (4.8-10.8) K/ul RBC (3.93-5.22) M/uL Hgb (12.0-16.0) g/dl Hct (34.1-44.9) % MCV (80.0-100.0) fL MCH (25.0-34.0) pg MCHC (32.0-36.0) g/dL RDW Std Deviation (36.4-46.3) fL RDW Coeff of Kath (11.5-14.5) % Plt Count (130-400) K/uL MPV (9.4-12.3) fL Immature Gran % (Auto) % Neut % (Auto) % Lymph % (Auto) % Dougherty % (Auto) % Eos % (Auto) % Baso % (Auto) % Neut # (Auto) (1.4-6.5) K/uL Lymph # (Auto) (1.2-3.4) K/uL Dougherty # (Auto) (0.24-0.82) K/uL Eos # (Auto) (0-0.50) K/uL Baso # (Auto) (0-0.2) K/uL Immature Gran # (Auto) (0.00-0.02) K/uL PT (9.0-12.0) Seconds INR (0.9-1.1) APTT (21.0-31.0) Seconds PTT Ratio Sodium (136-145) mmol/L Potassium (3.5-5.1) mmol/L Chloride (98-107) mmol/L Carbon Dioxide (21-32) mmol/L Anion Gap (3-11) BUN (6-23) mg/dl Creatinine (0.6-1.2) mg/dl Est Cr Clr Drug Dosing ml/min Est GFR ( Amer) ml/min Est GFR (Non-Af Amer) ml/min BUN/Creatinine Ratio (10-20) Glucose (70-99(Fasting)) mg/dl Calcium (8.5-10.1) mg/dl Total Bilirubin (0.2-1.0) mg/dl AST (13-39) U/L ALT (7-52) U/L Alkaline Phosphatase (34-104) U/L Troponin I High Sens (0-14) pg/ml Total Protein (6.0-8.3) gm/dl Albumin (3.4-5.0) gm/dl Globulin (2.5-4.0) gm/dl Albumin/Globulin Ratio (0.9-2) SARS-CoV-2, RNA, NAAT NEGATIVE (NEGATIVE) Imaging Data Radiologist's Impression: Chest CTA 09/25/22 07:20 CT angio chest PE protocol CLINICAL HISTORY: chest pain. Recent C section TECHNIQUE: Multidetector row helical CT of the chest was performed with angiographic protocol. Coronal and sagittal reformations were obtained. Coronal and sagittal MIPS were obtained from the axial data set and were submitted for review. Automated dose lowering techniques and/or adjustment according to patient size were utilized for this exam. CT DOSE: 571.96 mGycm Comparison: None available at the time of this dictation. FINDINGS: Lungs and pleura: There is a 3 mm pleural-based nodule in the right lower lobe (series 4 image 94). There is trace atelectasis in the left lung base. Heart and pericardium: Heart size is normal. No pericardial effusion. Vessels: There are are a few very small segmental and subsegmental pulmonary emboli in the bilateral lungs. Mediastinum and reshma: Unremarkable. Chest wall and lower neck: Unremarkable. Abdomen: A hiatal hernia is seen. Bones: Unremarkable. IMPRESSION: A few tiny segmental/subsegmental pulmonary emboli are seen bilaterally. No evidence of right heart strain. ACT 112: Negative or not required by law. Electronically signed by: Warren Floyd M.D. 09/25/2022 7:59 AM Venous Doppler Study 09/25/22 08:05 BILATERAL LOWER EXTREMITY VENOUS DOPPLER HISTORY: PE on CTA chest, eval for DVT. COMPARISON STUDY: None. FINDINGS: There is normal compressibility, flow, and augmentation within the bilateral lower extremity deep venous systems. IMPRESSION: No DVT within the right or left lower extremity. ACT 112: Negative or not required by law. Electronically signed by: Quirino Kemp M.D. 09/25/2022 10:18 AM MDM Narrative Patient was seen and evaluated as above in room A03. Review was performed of nursing notes and vital signs. I did review pertinent previous visits and patient history. After obtaining a thorough history and physical examination the above work up was performed. Patient presents to us today for evaluation of chest pain. She recently delivered via and has been doing quite well up until about 2 AM today. She developed chest pain. Options of care were discussed with the patient. IV access was established. Labs were drawn. EKG reveals normal sinus rhythm at a rate of 66 bpm. QTc 406. QRS 72. No ST elevation. Labs reveal no leukocytosis or concerning anemia. Troponin returned elevated at 33.9. Benefit versus risk of CT imaging discussed with the patient. It was felt that the benefit outweighs risk. CT scan was obtained. A few tiny segmental/subsegmental pulmonary emboli are seen bilaterally. No evidence of right heart strain per radiology report. Doppler studies of the lower extremities revealed no DVT. With the patient having chest pain in the setting of a CT of the chest revealing PEs per radiology, as well as elevated troponin I did find it reasonable to further discuss the case with cardiology. I spoke to Dr. Alicia. I also discussed the case with Dr. Paiz of [facility]. At this time I do believe the patient will be best managed in the inpatient setting where she may undergo trending of the troponin, hemodynamic monitoring, cardiac monitoring, as well as treatment for today's findings. Patient was initially hesitant as she wanted to be able to have her baby with her on the mother/baby floor. Unfortunately it appears that this area is full. I spoke to the refrigeration houseman Nighat and no rooms were available on the floor. However, they were able to accommodate the patient on the telemetry floor in a private room. Patient initially was desiring to be only on mother/baby floor however was ultimately amenable to proceeding with telemetry. COVID testing was obtained and was negative. Benefit versus risk of anticoagulation discussed and through shared decision making we will proceed. At that point in the patient's stay I had already discussed this with the hospitalist service that had ordered the anticoagulation already for the patient. Please refer to further documentation regarding her stay. Case was discussed with the attending physician. GCS: 15 In the evaluation and treatment of this patient the following differential diagn oses were entertained: IA, PE, dissection, cardiomyopathy, pneumonia, electrolyte abnormality, among others. Impression & Plan PE (pulmonary thromboembolism), Elevated troponin, Chest pain Discharge Plan Visit Data Chief Complaint: Chest Pain Stated Complaint: CHEST PAIN ED Provider: Maral Olivarez ED Midlevel Provider: Ken Perry Discharge Problem: PE (pulmonary thromboembolism), Elevated troponin, Chest pain Patient Disposition: Admitted As Inpatient Condition: Good Discharge Instructions Interventions: ED Discharge Assessment Last Done: 09/25/22 13:48
[2022-09-25] MEDS ORDERED: OPTIRAY 320 500ml IV ONE (07:48)
--- NOTE | 2022-09-25 08:00 | CT Scan Report ---
CT angio chest PE protocol CLINICAL HISTORY: chest pain. Recent C section TECHNIQUE: Multidetector row helical CT of the chest was performed with angiographic protocol. Johnson l and sagittal reformations were obtained. Coronal and sagittal MIPS were obtained from the axial adam a set and were submitted for review. Automated dose lowering techniques and/or adjustment according to patient size were utilized for this exam. CT DOSE: 571.96 mGycm Comparison: None available at the time of this dictation. FINDINGS: Lungs and pleura: There is a 3 mm pleural-based nodule in the right lower lobe (series 4 image 94). T here is trace atelectasis in the left lung base. Heart and pericardium: Heart size is normal. No pericardial effusion. Vessels: There are are a few very small segmental and subsegmental pulmonary emboli in the bilateral lungs. Mediastinum and reshma: Unremarkable. Chest wall and lower neck: Unremarkable. Abdomen: A hiatal hernia is seen. Bones: Unremarkable. IMPRESSION: A few tiny segmental/subsegmental pulmonary emboli are seen bilaterally. No evidence of right heart s train. ACT 112: Negative or not required by law. Electronically signed by: Warren Floyd M.D. 09/25/2022 7:59 AM
[2022-09-25] MEDS ORDERED: ENOXAPARIN 100 MG/1ML SYR SQ STA (09:57)
--- NOTE | 2022-09-25 10:21 | History & Physical Report ---
Date of Service September 25, 2022 Assessment & Plan (1) PE (pulmonary thromboembolism): Plan: -Patient is currently afebrile, hemodynamically stable, and stable on RA -In the case of newly diagnosed PE we recommend the patient being monitored on telemetry, unfortunately we do not have access to tele monitoring on the [employer] unit. After discussions with the patient, she is very concerned for the high rate of Flu and covid in the med/tele floors and would go home if we cannot get her a bed in the retail project merchandiser unit. We expressed empathy and understanding that her main concern is the health/safety of her baby. At this time it would be more beneficial for the patient to be admitted to the portfolio lead unit where we can monitor her then her being discharged home after starting lovenox. The patient acknowledged the risks of not being monitored on tele and accepted them. We will admit her to the COIL [facility] unit with close monitoring off tele. -Patient is S/P transverse with [employer] Wheel Fabricator on 09/20/22, noted chest pain this am and noted to have multiple small subsegmental PE's in the right lower lobe -Patient is currently stable on RA, BL venous Doppler of the LE's was negative for DVT -Will start the patient on therapeutic lovenox as this will be safe for -Monitor Hgb in the am and monitor surgical site for any signs of bleeding -Monitor on tele and pulse oximetry -Working with CM to get the patient a private room so her baby can also stay with her -AM CBC and CMP (2) Elevated troponin: Plan: -Initial high sensitivity trop elevated at 33.9 -Patient has mild/substernal chest discomfort without acute ECG changes -Elevation likely due to recent procedure and possibly from newly diagnosed PE's -Has been stable on RA and hemodynamically stable -Repeat troponin already in process, will follow-up and trend if needed (3) Gestational hypertension: Plan: -Diagnosed on last admission and discharged with PO labetalol -Found to be hypertensive in the ED at 175/106, did not take her am labetalol prior to coming to the ED -Will continue BID PO labetalol with first does given now, continue to monitor on tele (4) S/P section: Plan: -S/P transverse on 09/20 without reported complications -Patient's surgical site looks clean and intact -Patient without discomfort at the surgical site -Will start with prn tylenol for pain and can increase regimen as needed -Keep in mind that patient will be so pain regimen needs to be safe with (5) Anxiety: Plan: -Continue sertraline Plan The patient was discussed with Dr. Hickman at the time of the admisison History of Present Illness Chief Complaint: Chest pain Primary Care Provider: [facility] Monse is a 31 year old female with a PMH significant for recent low transverse with [employer] Wheel [employer]ricator on 09/20/22, anxiety, and obesity who presented to the [facility] ED on 09/25/22 with a chief complaint of chest pain. 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 She was diagnosed with gestational hypertension and was discharged on labetalol. In the ED today the patient was found to be afebrile, hypertensive at 175/106, and stable on RA. Labs were remarkable for WBC WNL, stable Hgb of 12.9 (was 11.7 on 09/22/22), stable renal function and electrolytes, initial high sensitivity troponin of 33.9, Alk phos of 113 (down from 114 on 09/22), and negative covid screen. CTA of the chest with PE protocol showed "A few tiny segmental/subsegmental pulmonary emboli are seen bilaterally. No evidence of right heart strain.". We were asked to admit the patient for observation while anticoagulation is initiated to ensure she remains stable. At the time of the exam the patient was resting comfortably in bed in no acute distress. She states that she had been doing well after discharge and has had no surgical site issues. She started developing substernal chest pain this morning at approximately 0200. She describes that pain as sharp/stabbing, constant, and a 4/10 at the current time. The pain does not radiate and does not change with movement or deep inspiration. She did not take any of her am medications prior to coming to the ED. I explained to her that we will start her on sub-Q lovenox as it is safe to use in mothers and we will monitor her for any signs of bleeding or complications associated with her PE's. Please refer to Dr. Hickman's attestation for any changes to the treatment plan Allergies Allergy/AdvReac Type Severity Reaction Status Date / Time No Known Allergies Allergy Verified 10/09/22 14:06 Home Medications Medication Instructions Recorded Confirmed Type sertraline 100 mg tablet 100 mg PO DAILY 03/27/21 10/09/22 History prenat.vits,matthias,hew-ywxq-wvwee 1 tab PO DAILY 02/05/22 10/09/22 History oxycodone-acetaminophen 5 mg-325 1 tab PO Q6H PRN pain #14 tabs 09/22/22 10/09/22 Rx mg tablet labetalol 200 mg tablet 200 mg PO Q12 30 days #60 tabs 09/23/22 10/09/22 Rx enoxaparin 100 mg/mL subcutaneous 100 mg subcut Q12H #60 mL 09/25/22 10/09/22 Rx syringe (Lovenox) Past Med/Surg History Medical History HSV-1 (herpes simplex virus 1) infection No chronic diseases present No pertinent past medical history Surgical History S/P wisdom tooth extraction Family History Father Hypertension Mother Anxiety Denies family history of Ovarian cancer Breast cancer Colorectal cancer Social History Smoking Status: Never smoker Hx Alcohol Use: No Hx Substance Use: No Preferred Language: Dutch Communication Ability: Effective Hand I Cutter Required: No Beliefs That Will Affect Care: None marital status: marital status details: Terrance Kathleen (31) [phone] Current Living Situation: Spouse Current Living Situation Comment: lives with spouse, cat-spoouse changing litter current occupational status: employed current occupation: [employer] Feels Safe at Home: Yes Review of Systems Review of Systems: Denies current fever, chills, headache, changes in vision, hearing, taste, and smell, lightheadedness, dizziness, SOB, cough, abdominal pain, nausea, vomiting, diarrhea, hematemesis, melena, dysuria, hematuria, and recent falls. All systems have been reviewed and are otherwise negative. Physical Exam Physical Exam: Physical Exam: General: In no acute distress, stated age, well-nourished, good hygiene, non-toxic appearing HEENT: Normocephalic, atraumatic, no scleral icterus, pupils around round, symmetrical, and reactive to light, moist mucus membranes, trachea midline, no thyromegaly Chest/Pulm: No respiratory distress, symmetrical chest expansion, clear breath sounds throughout Cardiac: RRR, no murmurs noted Abdomen: Negative for ascites and bruising, patient with site running transverse over the lower abdomen is intact and appears to be healing well, no signs of bleeding or other drainage, normoactive bowel sounds, soft, non-tender to palpation throughout Musculoskeletal: Symmetrical and without signs of acute trauma, upper and lower extremities with full ROM, no atrophy, spasticity, or flaccidity Extremities: Radial, dorsalis pedis, and posterior tibial pulses are intact and symmetrical, no edema noted in the BL LE's Skin: Warm, dry, no rashes , lesions, or scars noted Neuro: Alert and oriented to person, place, month, year, and president, no focal defects, CN II-XII tested and intact, finger to nose test negative, no tremors noted Psych: No acute distress, calm and cooperative during the exam Results & Data Results & Data ([facility]) Vital Signs (Past 12 Hours) Vital Signs Temp Pulse Pulse Resp BP BP Pulse Ox 09/25/22 08:15 61 18 175/106 H 98 09/25/22 07:18 64 18 146/103 H 97 09/25/22 06:13 65 18 152/101 H 95 09/25/22 06:46 95 09/25/22 06:16 36.8 C 70 20 151/100 H 99 O2 Del Method 09/25/22 08:15 Room Air 09/25/22 07:18 Room Air 09/25/22 06:13 Room Air 09/25/22 06:46 Room Air 09/25/22 06:16 Room Air Laboratory Results Abnormal lab results 09/25/22 09/25/22 Range/Units 06:32 06:32 Immature Gran # (Auto) 0.04 H (0.00-0.02) K/uL Creatinine 0.59 L (0.6-1.2) mg/dl Alkaline Phosphatase 113 H (34-104) U/L Troponin I High Sens 33.9 H (0-14) pg/ml Albumin 3.1 L (3.4-5.0) gm/dl Diagnostic Findings Chest CTA 09/25/22 07:20 CT angio chest PE protocol CLINICAL HISTORY: chest pain. Recent C section TECHNIQUE: Multidetector row helical CT of the chest was performed with angiographic protocol. Coronal and sagittal reformations were obtained. Coronal and sagittal MIPS were obtained from the axial data set and were submitted for review. Automated dose lowering techniques and/or adjustment according to patient size were utilized for this exam. CT DOSE: 571.96 mGycm Comparison: None available at the time of this dictation. FINDINGS: Lungs and pleura: There is a 3 mm pleural-based nodule in the right lower lobe (series 4 image 94). There is trace atelectasis in the left lung base. Heart and pericardium: Heart size is normal. No pericardial effusion. Vessels: There are are a few very small segmental and subsegmental pulmonary emboli in the bilateral lungs. Mediastinum and reshma: Unremarkable. Chest wall and lower neck: Unremarkable. Abdomen: A hiatal hernia is seen. Bones: Unremarkable. IMPRESSION: A few tiny segmental/subsegmental pulmonary emboli are seen bilaterally. No evidence of right heart strain. ACT 112: Negative or not required by law. Electronically signed by: Warren Floyd M.D. 09/25/2022 7:59 AM Venous Doppler Study 09/25/22 08:05 BILATERAL LOWER EXTREMITY VENOUS DOPPLER HISTORY: PE on CTA chest, eval for DVT. COMPARISON STUDY: None. FINDINGS: There is normal compressibility, flow, and augmentation within the bilateral lower extremity deep venous systems. IMPRESSION: No DVT within the right or left lower extremity. ACT 112: Negative or not required by law. Electronically signed by: Quirino Kemp M.D. 09/25/2022 10:18 AM ECG Additional Comments: Poor data quality, interpretation may be adversely affected Normal sinus rhythm Normal ECG No previous ECGs available Confirmed by Donavan Alicia ([id number]) on 09/25/2022 8:20:39 AM Code Status & VTE Plan Code Status Full code VTE Prophylaxis Plan VTE Prophylaxis will be ordered: Yes Supervising Physician Co-Signing Physician Notes I personally saw and examined the patient. I verified all arias points and agree with Jesus Horner PA-C with the following exceptions and/or additions: 32 year old female presents with chest pain. No clear this is definitely coming from pulmonary emboli however no alternative concerning etiology and did not improve with GERD medication at home. No arrhythmias on telemetry. Echocardiogram unremarkable. O/E HS1+2, no murmurs, Chest CTAB, Abdo SNT A/P Pulmonary emboli - Patient wishes to be discharged. No shortness of breath or hypoxia. Troponin I high sensitivity downtrending. Will continue on Lovenox and ensured patient will have two doses from pharmacy. Agreed to discharge at this time. PG Care Time/CCT Total # of Minutes Spent Total Time Spent with Patient: Total time spent is greater than 50% in coordination of care (as documented) at patient's floor/unit and/or counseling patient: Coding Level of Care Code Established Pt INT OBSERVATION CARE 70M LVL 3 Patient Type Established Medical Decision Making High Complexity Diagnoses PE (pulmonary thromboembolism) I26.99 Elevated troponin R77.8 Gestational hypertension O13.9 S/P section Z98.891 Anxiety F41.9
[2022-09-25] MEDS ORDERED: LABETALOL HCL 100 MG TAB PO STA (10:33)
--- NOTE | 2022-09-25 14:07 | XCELERA ---
[id number]
[2022-09-25] MEDS ORDERED: FLUARIX QUADRIVALENT 0.5 ML SYR IM ONE (14:28)
[2022-09-25] MEDS: ACETAMINOPHEN 325 MG TAB PO PRN ×2 (14:29→18:00)
[2022-09-25] MEDS ORDERED: ENOXAPARIN 100 MG/1ML SYR SQ SCH ×2 (18:45→23:00)
[2022-09-25] MEDS ORDERED: LABETALOL HCL 200 MG TAB PO SCH (21:00)
[2022-09-26] MEDS ORDERED: PRENATAL VITAMIN 1 TAB PO SCH (09:00)
[2022-09-26] MEDS ORDERED: SERTRALINE HCL 100 MG TABLET PO SCH (09:00)
--- NOTE | 2022-10-10 07:07 | Discharge Summary ---
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 She was diagnosed with gestational hypertension and was discharged on labetalol. In the ED today the patient was found to be afebrile, hypertensive at 175/106, and stable on RA. Labs were remarkable for WBC WNL, stable Hgb of 12.9 (was 11.7 on 09/22/22), stable renal function and electrolytes, initial high sensitivity troponin of 33.9, Alk phos of 113 (down from 114 on 09/22), and negative covid screen. CTA of the chest with PE protocol showed "A few tiny segmental/subsegmental pulmonary emboli are seen bilaterally. No evidence of right heart strain.". We were asked to admit the patient for observation while anticoagulation is initiated to ensure she remains stable. At the time of the exam the patient was resting comfortably in bed in no acute distress. She states that she had been doing well after discharge and has had no surgical site issues. She started developing substernal chest pain this morning at approximately 0200. She describes that pain as sharp/stabbing, constant, and a 4/10 at the current time. The pain does not radiate and does not change with movement or deep inspiration. She did not take any of her am medications prior to coming to the ED. I explained to her that we will start her on sub-Q lovenox as it is safe to use in mothers and we will monitor her for any signs of bleeding or complications associated with her PE's. Please refer to Dr. Hickman's attestation for any changes to the treatment plan Principal Diagnosis Bilateral pulmonary emboli Discharge Exam Constitutional WD/WN, vitals as above Respiratory normal respiratory effort, lungs clear to auscultation Cardiovascular RRR, no murmur, no edema Gastrointestinal (Abdomen) normal bowel sounds, soft, nontender, no hepatosplenomegaly Psychiatric A+Ox3, euthymic affect Discharge Data Allergies Allergy/AdvReac Type Severity Reaction Status Date / Time No Known Allergies Allergy Verified 10/09/22 14:06 Consultations 09/25/22 09:40 ED Decision to Admit Stat Ordered Studies 09/25/22 07:20 CT angio chest PE protocol Stat 09/25/22 08:05 US venous doppler LE BI Stat Hospital Course (1) PE (pulmonary thromboembolism): Monse Wang is a 32 year old female observed at [facility] on September 25, 2022 due to chest pain. She was diagnosed with bilateral pulmonary emboli on CT angiogram. This was treated with Lovenox. 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 Recommend continuing Lovenox treatment dose for approximately 3 months. She will take labs for review tomorrow and follow up with her primary care physician next week. She is chest pain free on discharge. High sensitivity troponins are downtrending, blood pressure has normalized after resuming her usual medication and echocardiogram unremarkable. (2) Elevated troponin: (3) Gestational hypertension: (4) S/P section: (5) Anxiety: Total Time Total Time Spent Total Time Spent (In Minutes): 45 Discharge Plan Discharge Items Patient Disposition: Home - Self-Care Reason For Visit: BILATERAL PULMONARY EMBOLI Discharge Diagnosis: Bilateral pulmonary emboli Condition on Discharge: Good Activity: Resume your previous activity Non-emergency contact: Primary Care Provider Call non-emergency contact if: you have any medication questions and your symptoms worsen Follow-up/Referrals: [place] [Primary Care Provider] - Diet: Regular Addtl Attending Provider Instructions: You were observed at [facility] on September 25, 2022 due to chest pain. You were diagnosed with bilateral pulmonary emboli om CT angiogram. This was treated with Lovenox. Please continue this for approximately 3 months. Please take CBC and BMP tomorrow and call the hospital to ask for Dr Hickman to check results. Please follow up with your primary care physician in the next week. Pending Studies at Discharge: No Stand-Alone Forms: My [facility] [place], Smoking Cessation Medications and DC Order Prescriptions: New enoxaparin [Lovenox] 100 mg/mL syringe 100 mg subcut Q12H Qty: 60 0RF Continued prenat.vits,matthias,efg-vcvd-lsxij Tablet 1 tab PO DAILY sertraline 100 mg tablet 100 mg PO DAILY oxycodone-acetaminophen 5-325 mg tablet 1 tab PO Q6H PRN (Reason: pain) Qty: 14 0RF labetalol 200 mg Tablet 200 mg PO Q12 30 Days Qty: 60 0RF Rx Instructions: Take one pill every 12 hours Discontinued ibuprofen 600 mg tablet 600 mg PO Q6H PRN (Reason: pain) Qty: 60 1RF Discharge Orders: Discharge Order (Routine); Ordered 09/25/22 Ordered By: Grayson Hickman Admission Data Admit Date/Time: 09/25/22 09:56 Attending Provider: Grayson Hickman Admit Provider: Grayson Hickman Primary Care Provider: [facility] Other Interventions: Discharge Summary Assessment (RN) Last Done: 09/25/22 18:40 Coding Level of Care Code OBSERV/HOSP SAME DATE LVL 3 Diagnoses PE (pulmonary thromboembolism) I26.99 Elevated troponin R77.8 Gestational hypertension O13.9 S/P section Z98.891 Anxiety F41.9
== END 2022-09-25 19:15 | disposition home or self-care (01) ==
LOC: 2W 06:13 → ED 06:13 → 2W 13:48